=== PATIENT | female | born 1950 | race Caucasian/White ===

== ENCOUNTER → 2017-02-12 | Outpatient (CLI) | payer MEDICARE ==
[~2017-02-12] MED LIST: ASCO10004 PO; CALC1CAP8 PO; CHOL100018 PO; HYDR-3138 PO; THYR240T PO; [UNRECOGNIZED DRUG - OTHER] PO; [UNRECOGNIZED DRUG - OTHER] PO
== END | disposition home or self-care (01) ==
LOC: CFH 12:23
PROVIDERS: ATTEND Family Medicine
DX: Z12.31 Encounter for screening mammogram for malignant neoplasm of breast (principal)
CPT/HCPCS: G0202

== ENCOUNTER → 2018-01-23 | Outpatient (CLI) | payer MEDICARE ==
[~2018-01-23] MED LIST changes: +CALC600T4 PO; +CHOL100012 PO; -CHOL100018 PO; +CHOL2000 PO; -HYDR-3138 PO; +HYDR-3237 PO; +IODI1GRA PO; +KELP1TAB PO; +LEVO137T2 PO; +MULT1TAB60 PO; +SODIUM PO; +SULF1TAB24 PO; +UBID100C24 PO; +ZINC50TA28 PO
[2018-01-23 11:05] LABS: BASOPHILS # (AUTO) 0.03 x10^3/uL (0-0.1); BASOPHILS % (AUTO) 0 % (0-1); EOSINOPHILS # (AUTO) 0.05 x10^3/uL (0-0.4); EOSINOPHILS % (AUTO) 1 % (1-7); LYMPHOCYTES % (AUTO) 21 % (22-44); MD NO; MEAN CORPUSCULAR HGB CONC 33.5 g/dL (32.4-35.8); MEAN CORPUSCULAR VOLUME 92.5 fL (80-100); MEAN PLATELET VOLUME 7.3 fL (7.4-10.4); MONOCYTES # (AUTO) 0.66 x10^3/uL (0.2-0.8); MONOCYTES % (AUTO) 10 % (2-9); NEUTROPHILS # (AUTO) 4.53 x10^3/uL (1.8-6.8); NEUTROPHILS % (AUTO) 68 % (42-75); PLATELET COUNT 226 x10^3/uL (130-400); RED CELL DISTRIBUTION WIDTH 13.4 % (9.6-15.2)
[2018-01-23 11:14] LABS: ALBUMIN 3.8 g/dL (3.4-5.0); ANION GAP 6 mmol/L (5-15); CALCIUM 8.5 mg/dL (8.5-10.1); CHLORIDE 105 mmol/L (98-107)
[2018-01-23 11:18] LABS: ALANINE AMINOTRANSFERASE 28 U/L (12-78); ALKALINE PHOSPHATASE 57 U/L (45-117); BILIRUBIN,TOTAL 0.6 mg/dL (0.2-1.0); CREATININE 1.34 mg/dL (0.55-1.02); TOTAL PROTEIN 6.7 g/dL (6.4-8.2)
== END ==
LOC: STAR 09:29
PROVIDERS: ATTEND Obstetrics & Gynecology
DX: Z01.818 Encounter for other preprocedural examination (principal); R94.31 Abnormal electrocardiogram [ECG] [EKG]
CPT/HCPCS: 36415; 80053; 85025; 93005

== ENCOUNTER 2018-01-30 05:33 | Observation (INO) | payer MEDICARE ==
[~2018-01-30] VITALS: Ht 154.9 cm; Wt 150.0 kg
[2018-01-30 06:28] VITALS: BP 154/89
[2018-01-30] MEDS ORDERED: MIDAZOLAM 1 MG/ML, 2ML ONE (06:35)
[2018-01-30] MEDS ORDERED: FENTANYL PF 250 MCG/5ML ONE (06:35)
[2018-01-30] MEDS ORDERED: PROPOFOL 10 MG/ML, 20ML ONE (06:38)
[2018-01-30] MEDS ORDERED: DEXAMETHASONE 4 MG/ML, 1ML ONE ×2 (06:41)
[2018-01-30] MEDS ORDERED: SODIUM CHLORIDE 0.9% PF 10ML ONE (06:41)
[2018-01-30] MEDS ORDERED: ONDANSETRON 2MG/ML, 2ML ONE (06:41)
[2018-01-30] MEDS ORDERED: CEFAZOLIN 1,000 MG ONE ×3 (06:41→08:08)
[2018-01-30] MEDS ORDERED: BUPIVACAINE/PF 0.25% ONE (07:03)
[2018-01-30] MEDS ORDERED: SILVER NITRATE STICK TP ONE (07:03)
[2018-01-30] MEDS ORDERED: EPINEPHRINE 1 MG/ML, 1ML ONE (07:03)
[2018-01-30] MEDS: LACTATED RINGERS 1,000 ML IV SCH ×2 (07:23→13:40)
[2018-01-30] MEDS ORDERED: HYDROmorphone 1 MG/ML, 1ML IV PRN (07:30)
[2018-01-30] MEDS ORDERED: MEPERIDINE/PF 25MG/0.5ML IVPush PRN (07:30)
[2018-01-30] MEDS ORDERED: ONDANSETRON 2MG/ML, 2ML IVPush PRN (07:30)
[2018-01-30] MEDS ORDERED: LABETALOL 5MG/ML, 20ML IV PRN (07:30)
[2018-01-30] MEDS ORDERED: hydrALAzine 20 MG/ML, 1ML IV PRN (07:30)
[2018-01-30] MEDS ORDERED: PROMETHAZINE 12.5 MG SUPP PR PRN (07:30)
[2018-01-30] MEDS ORDERED: morphine SULFATE 10 MG/ML, 1ML IV PRN ×2 (07:30→11:00)
[2018-01-30] MEDS ORDERED: ACETAMINOPHEN 325 MG TABLET PO PRN (07:30)
[2018-01-30] MEDS ORDERED: PROMETHAZINE 25 MG/ML, 1ML IV PRN (07:30)
[2018-01-30] MEDS ORDERED: HYDROcodone/APAP 7.5-325MG/15ML UDC PO PRN (07:30)
[2018-01-30] MEDS ORDERED: FENTANYL PF 100 MCG/2ML ONE (08:55)
[2018-01-30] MEDS ORDERED: HYDROcodone/APAP 7.5-325MG/15ML UDC ONE (08:55)
[2018-01-30] MEDS: FENTANYL PF 100 MCG/2ML IV PRN ×2 (08:57→09:05)
[2018-01-30] MEDS ORDERED: IBUPROFEN 600 MG TABLET PO PRN (11:00)
[2018-01-30] MEDS ORDERED: ONDANSETRON 2MG/ML, 2ML IV PRN (11:00)
[2018-01-30] MEDS ORDERED: HYDROcodone/APAP 5/325 TABLET PO PRN (11:00)
[2018-01-30 13:28] VITALS: BP 152/75
[2018-01-30 20:24] VITALS: BP 133/71
[2018-01-30] MEDS ORDERED: CHOLECALCIFEROL 1,000 UNIT TABLET PO SCH (21:00)
[2018-01-31 01:29] VITALS: BP 129/63
[2018-01-31 03:59] VITALS: BP 104/68
[2018-01-31] MEDS ORDERED: LEVOTHYROXINE 137 MCG TABLET PO SCH (06:00)
[2018-01-31] MEDS ORDERED: OXYcodone IR 5MG TABLET PO PRN (08:30)
[2018-01-31] MEDS ORDERED: MULTIVITAMIN 1 TABLET PO SCH (09:00)
[2018-01-31] MEDS ORDERED: ZINC SULFATE 220 MG CAPSULE PO SCH (09:00)
[2018-01-31] MEDS ORDERED: CALCIUM CARBONATE 500 MG TABLET PO SCH (09:00)
[2018-01-31] MEDS ORDERED: SULFAMETH./TRIMETHOPRIM DS 800MG/160MG TABLET PO SCH (09:00)
[2018-01-31 09:07] VITALS: BP 124/53
[2018-01-31 12:30] VITALS: BP 129/58
== END 2018-01-31 14:08 | disposition home or self-care (01) ==
LOC: OUT 05:33 → 4NOR 09:45 → OUT 10:13 → DCLOUNGE 01-31 13:25
PROVIDERS: ADMIT Obstetrics & Gynecology; ATTEND Obstetrics & Gynecology
DX: N84.0 Polyp of corpus uteri (principal); N84.2 Polyp of vagina; E03.9 Hypothyroidism, unspecified; I10 Essential (primary) hypertension
CPT/HCPCS: 58563; 88305; G0378; J0171; J0690; J1100; J2250; J2405; J2704; J3010; J3490; J7120

== ENCOUNTER → 2019-02-05 | Outpatient (CLI) | payer MEDICARE ==
[~2019-02-05] MED LIST changes: -ZINC50TA28 PO; +ZINC50TA44 PO
== END | disposition home or self-care (01) ==
LOC: CFH 16:58
PROVIDERS: ATTEND Family Medicine
DX: R05 Cough (principal)
CPT/HCPCS: 71046

== ENCOUNTER → 2019-04-16 | Outpatient (CLI) | payer MEDICARE | END | disposition home or self-care (01) | LOC: CFH 12:47 | PROVIDERS: ATTEND Family Medicine | DX: Z12.31 Encounter for screening mammogram for malignant neoplasm of breast (principal); M48.07 Spinal stenosis, lumbosacral region; M47.817 Spondylosis without myelopathy or radiculopathy, lumbosacral region; M25.78 Osteophyte, vertebrae; M19.021 Primary osteoarthritis, right elbow; M25.821 Other specified joint disorders, right elbow | CPT/HCPCS: 72110; 77067 ==

== ENCOUNTER 2019-12-10 15:34 | Outpatient (CLI) | payer MEDICARE ==
[~2019-12-10 15:34] MED LIST changes: +ASCO500C10 PO; +CEPH-368 PO; +LEVO137T3 PO
== END 2019-12-10 23:59 | disposition home or self-care (01) ==
LOC: CFH 15:34
PROVIDERS: ATTEND Family Medicine
DX: M79.605 Pain in left leg (principal); R22.42 Localized swelling, mass and lump, left lower limb; M79.89 Other specified soft tissue disorders

== ENCOUNTER 2020-04-14 16:18 | Inpatient (IN) | payer MEDICARE ==
[~2020-04-14] VITALS: Ht 157.5 cm; Wt 157.4 kg
[~2020-04-14 16:18] MED LIST changes: +ASPI325T17 PO; +FURO20TA3 PO
--- NOTE | 2020-04-14 17:07 | NUR ---
Recently admitted for COVID-19. Feeling worse today. +cough. VSS. No needs. Placed in isolation.
[2020-04-14 17:09] LABS: BASOPHILS # (AUTO) 0.02 x10^3/uL (0-0.1); BASOPHILS % (AUTO) 0 % (0-1); EOSINOPHILS # (AUTO) 0.02 x10^3/uL (0-0.4); EOSINOPHILS % (AUTO) 0 % (1-7); LYMPHOCYTES # (AUTO) 1.25 x10^3/uL (1-3.4); LYMPHOCYTES % (AUTO) 30 % (22-44); MD NO; MEAN CORPUSCULAR HEMOGLOBIN 29.9 pg (27.0-34.8); MEAN CORPUSCULAR HGB CONC 32.6 g/dL (32.4-35.8); MEAN CORPUSCULAR VOLUME 91.7 fL (80-100); MEAN PLATELET VOLUME 7.7 fL (7.4-10.4); MONOCYTES # (AUTO) 0.72 x10^3/uL (0.2-0.8); MONOCYTES % (AUTO) 17 % (2-9); NEUTROPHILS # (AUTO) 2.16 x10^3/uL (1.8-6.8); NEUTROPHILS % (AUTO) 52 % (42-75); PLATELET COUNT 180 x10^3/uL (130-400); RED BLOOD COUNT 4.46 x10^6/uL (3.82-5.3); RED CELL DISTRIBUTION WIDTH 15.7 % (9.6-15.2)
[2020-04-14 17:22] LABS: ALANINE AMINOTRANSFERASE 35 U/L (12-78); ALBUMIN 3.4 g/dL (3.4-5.0); ALKALINE PHOSPHATASE 53 U/L (45-117); ANION GAP 9 mmol/L (5-15); BILIRUBIN,TOTAL 0.3 mg/dL (0.2-1.0); CALCIUM 8.7 mg/dL (8.5-10.1); CHLORIDE 105 mmol/L (98-107); CREATININE 1.24 mg/dL (0.55-1.02); TOTAL PROTEIN 6.8 g/dL (6.4-8.2)
--- NOTE | 2020-04-14 17:24 | NUR ---
SBA to the [facility]. Voided roughly 700mL ckear yellow urine.
--- NOTE | 2020-04-14 18:41 | NUR ---
Resting in [facility]. VSS. No acute distress.
[2020-04-14] MEDS ORDERED: MAGN400T36 PEG (20:00)
--- NOTE | 2020-04-14 20:02 | NUR ---
Plan is for admit. IV started and med rec complete. SBA to [facility]. No other needs.
--- NOTE | 2020-04-14 20:51 | NUR ---
Resting in [facility]. No needs.
[2020-04-14] MEDS ORDERED: POLYETHYLENE GLYCOL 17 GM PACKET PO PRN (21:00)
[2020-04-14] MEDS: FUROSEMIDE 20 MG TABLET PO SCH ×2 (21:00→22:57)
[2020-04-14] MEDS ORDERED: BISACODYL 10 MG SUPP PR PRN (21:00)
[2020-04-14] MEDS ORDERED: SODIUM CHLORIDE 0.9% 1,000 ML IV SCH (21:00)
[2020-04-14] MEDS ORDERED: GUAIFENESIN/DM 200-20MG, 10ML UDC PO PRN (21:00)
[2020-04-14] MEDS ORDERED: ONDANSETRON ODT 4 MG PO PRN (21:00)
--- NOTE | 2020-04-14 22:04 | NUR ---
GAVE REPORT TO CHACHO VILLAGRAN
[2020-04-14] MEDS: CHOLECALCIFEROL 1,000 UNIT TABLET PO SCH (22:56)
[2020-04-14] MEDS: ASCORBIC ACID 500 MG TABLET PO SCH (22:56)
[2020-04-14] MEDS: HEPARIN 5,000 UNITS/ML, 1ML SQ SCH (22:57)
[2020-04-14] MEDS: SODIUM CHLORIDE FLUSH 10ML SYR IVF SCH (22:58)
[2020-04-15 02:00] VITALS: BP 135/68
[2020-04-15] MEDS: HEPARIN 5,000 UNITS/ML, 1ML SQ SCH ×3 (05:11→20:29)
[2020-04-15] MEDS: ACETAMINOPHEN 325 MG TABLET PO PRN (06:17)
[2020-04-15 06:30] LABS: BASOPHILS # (AUTO) 0.02 x10^3/uL (0-0.1); BASOPHILS % (AUTO) 1 % (0-1); EOSINOPHILS # (AUTO) 0.03 x10^3/uL (0-0.4); EOSINOPHILS % (AUTO) 1 % (1-7); LYMPHOCYTES # (AUTO) 1.28 x10^3/uL (1-3.4); LYMPHOCYTES % (AUTO) 34 % (22-44); MD NO; MEAN CORPUSCULAR VOLUME 90.8 fL (80-100); MEAN PLATELET VOLUME 8.1 fL (7.4-10.4); MONOCYTES # (AUTO) 0.67 x10^3/uL (0.2-0.8); MONOCYTES % (AUTO) 18 % (2-9); NEUTROPHILS # (AUTO) 1.78 x10^3/uL (1.8-6.8); NEUTROPHILS % (AUTO) 47 % (42-75); PLATELET COUNT 177 x10^3/uL (130-400); RED BLOOD COUNT 4.24 x10^6/uL (3.82-5.3); RED CELL DISTRIBUTION WIDTH 16.1 % (9.6-15.2)
[2020-04-15 06:39] LABS: ANION GAP 8 mmol/L (5-15); CALCIUM 8.1 mg/dL (8.5-10.1); CHLORIDE 108 mmol/L (98-107); CREATININE 0.96 mg/dL (0.55-1.02)
[2020-04-15] MEDS ORDERED: LEVOTHYROXINE 100 MCG TABLET PO SCH (07:30)
[2020-04-15 07:34] LABS: C-REACTIVE PROTEIN, QUANT 1.2 mg/dL (0.02-0.49)
[2020-04-15 08:00] VITALS: BP 112/53
[2020-04-15] MEDS: SENNA/DOCUSATE TABLET PO SCH (08:47)
[2020-04-15] MEDS: CALCIUM CARBONATE 500 MG TAB.CHEW PO SCH (08:47)
[2020-04-15] MEDS: FUROSEMIDE 20 MG TABLET PO SCH ×2 (08:48→20:29)
[2020-04-15] MEDS: MAGNESIUM OXIDE 400 MG TABLET PEG SCH (08:48)
[2020-04-15] MEDS: ASCORBIC ACID 500 MG TABLET PO SCH ×3 (08:48→20:29)
[2020-04-15] MEDS: ZINC SULFATE 220 MG CAPSULE PO SCH (08:48)
[2020-04-15] MEDS: MULTIVITAMIN 1 TABLET PO SCH (08:48)
[2020-04-15] MEDS: ASPIRIN 325 MG TABLET PO SCH (08:48)
[2020-04-15] MEDS: SODIUM CHLORIDE FLUSH 10ML SYR IVF SCH ×2 (08:55→20:31)
[2020-04-15] MEDS ORDERED: UBIDECARENONE 600 MG PO SCH (09:00)
[2020-04-15 12:28] LABS: FREE T4 (FREE THYROXINE) 1.37 ng/dL (0.76-1.46)
[2020-04-15 14:00] VITALS: BP 157/79
[2020-04-15 15:38] LABS: ANION GAP 9 mmol/L (5-15); CALCIUM 8.2 mg/dL (8.5-10.1); CHLORIDE 107 mmol/L (98-107)
[2020-04-15 20:00] VITALS: BP 133/58
[2020-04-15] MEDS: CHOLECALCIFEROL 1,000 UNIT TABLET PO SCH (20:29)
[2020-04-16] MEDS ORDERED: OMNIPAQUE 350 MG/ML, 100ML BOTTLE ONE (00:07)
[2020-04-16 02:49] VITALS: BP 137/53
[2020-04-16] MEDS: HEPARIN 5,000 UNITS/ML, 1ML SQ SCH ×3 (05:37→21:13)
[2020-04-16] MEDS ORDERED: LEVOTHYROXINE 100 MCG TABLET PO SCH (07:30)
[2020-04-16] MEDS: MAGNESIUM OXIDE 400 MG TABLET PEG SCH (08:27)
[2020-04-16] MEDS: CALCIUM CARBONATE 500 MG TAB.CHEW PO SCH (08:28)
[2020-04-16] MEDS: SODIUM CHLORIDE FLUSH 10ML SYR IVF SCH ×2 (08:28→21:13)
[2020-04-16] MEDS: ASPIRIN 325 MG TABLET PO SCH (08:28)
[2020-04-16] MEDS: MULTIVITAMIN 1 TABLET PO SCH (08:29)
[2020-04-16] MEDS: FUROSEMIDE 20 MG TABLET PO SCH ×2 (08:29→13:28)
[2020-04-16] MEDS: ASCORBIC ACID 500 MG TABLET PO SCH ×3 (08:29→21:13)
[2020-04-16] MEDS: SENNA/DOCUSATE TABLET PO SCH (08:30)
[2020-04-16] MEDS: ZINC SULFATE 220 MG CAPSULE PO SCH (08:30)
[2020-04-16 08:45] VITALS: BP 134/67
[2020-04-16] MEDS: GUAIFENESIN ER 600 MG TABLET PO SCH ×2 (11:58→21:14)
[2020-04-16] MEDS: ACETAMINOPHEN 325 MG TABLET PO PRN (13:28)
[2020-04-16 17:24] VITALS: BP 160/78
[2020-04-16 18:56] VITALS: BP 138/71
[2020-04-16] MEDS: CHOLECALCIFEROL 1,000 UNIT TABLET PO SCH (21:14)
[2020-04-17 00:52] VITALS: BP 127/69
[2020-04-17] MEDS: HEPARIN 5,000 UNITS/ML, 1ML SQ SCH ×3 (05:10→20:56)
[2020-04-17] MEDS: FUROSEMIDE 20 MG TABLET PO SCH ×2 (05:10→13:13)
[2020-04-17] MEDS: LEVOTHYROXINE 100 MCG TABLET PO SCH (05:11)
[2020-04-17 08:46] VITALS: BP 115/54
[2020-04-17] MEDS: SENNA/DOCUSATE TABLET PO SCH (09:00)
[2020-04-17] MEDS: MULTIVITAMIN 1 TABLET PO SCH (10:08)
[2020-04-17] MEDS: SODIUM CHLORIDE FLUSH 10ML SYR IVF SCH ×2 (10:08→20:55)
[2020-04-17] MEDS: ZINC SULFATE 220 MG CAPSULE PO SCH (10:09)
[2020-04-17] MEDS: CALCIUM CARBONATE 500 MG TAB.CHEW PO SCH (10:09)
[2020-04-17] MEDS: MAGNESIUM OXIDE 400 MG TABLET PEG SCH (10:09)
[2020-04-17] MEDS: ASPIRIN 325 MG TABLET PO SCH (10:09)
[2020-04-17] MEDS: ASCORBIC ACID 500 MG TABLET PO SCH ×3 (10:10→20:56)
[2020-04-17 13:10] VITALS: BP 148/97
[2020-04-17 20:00] VITALS: BP 143/67
[2020-04-17] MEDS: CHOLECALCIFEROL 1,000 UNIT TABLET PO SCH (20:57)
[2020-04-18 02:00] VITALS: BP 131/69
[2020-04-18] MEDS: HEPARIN 5,000 UNITS/ML, 1ML SQ SCH (05:18)
[2020-04-18] MEDS: FUROSEMIDE 20 MG TABLET PO SCH ×2 (05:19→14:15)
[2020-04-18] MEDS: LEVOTHYROXINE 100 MCG TABLET PO SCH (05:19)
[2020-04-18 08:25] VITALS: BP 122/46
[2020-04-18] MEDS ORDERED: LEVOFLOXACIN/PMX 750MG/150ML 150 ML IV SCH (09:30)
[2020-04-18] MEDS: methylPREDNISolone SOD SUCC 40 MG/ML IV SCH ×2 (10:19→20:33)
[2020-04-18] MEDS: ASPIRIN 325 MG TABLET PO SCH (10:19)
[2020-04-18] MEDS: SODIUM CHLORIDE FLUSH 10ML SYR IVF SCH ×2 (10:19→20:34)
[2020-04-18] MEDS: CALCIUM CARBONATE 500 MG TAB.CHEW PO SCH (10:19)
[2020-04-18] MEDS: MULTIVITAMIN 1 TABLET PO SCH (10:19)
[2020-04-18] MEDS: ZINC SULFATE 220 MG CAPSULE PO SCH (10:19)
[2020-04-18] MEDS: MAGNESIUM OXIDE 400 MG TABLET PEG SCH (10:20)
[2020-04-18] MEDS: SENNA/DOCUSATE TABLET PO SCH (10:20)
[2020-04-18] MEDS: ENOXAPARIN 60 MG/0.6 ML SQ SCH (10:20)
[2020-04-18] MEDS: ASCORBIC ACID 500 MG TABLET PO SCH ×3 (10:20→20:33)
[2020-04-18 13:00] VITALS: BP 122/63
[2020-04-18 19:14] VITALS: BP 180/86
[2020-04-18 19:21] VITALS: BP 157/83
[2020-04-18] MEDS: CHOLECALCIFEROL 1,000 UNIT TABLET PO SCH (20:33)
[2020-04-18] MEDS: MELATONIN 3 MG TABLET PO SCH (20:34)
[2020-04-19 02:00] VITALS: BP 146/86
[2020-04-19] MEDS: LEVOTHYROXINE 100 MCG TABLET PO SCH (05:44)
[2020-04-19] MEDS ORDERED: LEVOFLOXACIN 750 MG TABLET PO SCH (06:00)
[2020-04-19 07:34] VITALS: BP 154/82
[2020-04-19] MEDS: methylPREDNISolone SOD SUCC 40 MG/ML IV SCH ×2 (08:36→21:35)
[2020-04-19] MEDS: ASPIRIN 325 MG TABLET PO SCH (08:37)
[2020-04-19] MEDS: MULTIVITAMIN 1 TABLET PO SCH (08:37)
[2020-04-19] MEDS: ASCORBIC ACID 500 MG TABLET PO SCH ×3 (08:37→21:36)
[2020-04-19] MEDS: ZINC SULFATE 220 MG CAPSULE PO SCH (08:37)
[2020-04-19] MEDS: CALCIUM CARBONATE 500 MG TAB.CHEW PO SCH (08:37)
[2020-04-19] MEDS: SODIUM CHLORIDE FLUSH 10ML SYR IVF SCH ×2 (08:37→21:36)
[2020-04-19] MEDS: MAGNESIUM OXIDE 400 MG TABLET PEG SCH (08:38)
[2020-04-19] MEDS: ENOXAPARIN 60 MG/0.6 ML SQ SCH (08:38)
[2020-04-19] MEDS: SENNA/DOCUSATE TABLET PO SCH (08:39)
[2020-04-19 08:43] LABS: ALBUMIN 3.7 g/dL (3.4-5.0); ANION GAP 6 mmol/L (5-15); CALCIUM 8.7 mg/dL (8.5-10.1); CHLORIDE 107 mmol/L (98-107); MEAN CORPUSCULAR HEMOGLOBIN 30.1 pg (27.0-34.8); MEAN CORPUSCULAR HGB CONC 33.2 g/dL (32.4-35.8); MEAN CORPUSCULAR VOLUME 90.7 fL (80-100); MEAN PLATELET VOLUME 7.3 fL (7.4-10.4); PLATELET COUNT 324 x10^3/uL (130-400); RED BLOOD COUNT 5.02 x10^6/uL (3.82-5.3); RED CELL DISTRIBUTION WIDTH 15.6 % (9.6-15.2)
[2020-04-19 08:48] LABS: ALANINE AMINOTRANSFERASE 55 U/L (12-78); ALKALINE PHOSPHATASE 63 U/L (45-117); BILIRUBIN,TOTAL 0.5 mg/dL (0.2-1.0); C-REACTIVE PROTEIN, QUANT 0.41 mg/dL (0.02-0.49); CREATININE 1.08 mg/dL (0.55-1.02); TOTAL PROTEIN 7.8 g/dL (6.4-8.2)
[2020-04-19 09:17] LABS: BASOPHILS # (AUTO) 0.03 x10^3/uL (0-0.1); BASOPHILS % (AUTO) 0 % (0-1); EOSINOPHILS % (AUTO) 0 % (1-7); LYMPHOCYTES # (AUTO) 1.21 x10^3/uL (1-3.4); LYMPHOCYTES % (AUTO) 9 % (22-44); MD SCAN; MONOCYTES # (AUTO) 0.52 x10^3/uL (0.2-0.8); MONOCYTES % (AUTO) 4 % (2-9); NEUTROPHILS # (AUTO) 12.09 x10^3/uL (1.8-6.8); NEUTROPHILS % (AUTO) 87 % (42-75)
[2020-04-19 12:28] VITALS: BP 146/82
[2020-04-19] MEDS: FUROSEMIDE 20 MG TABLET PO SCH (13:41)
[2020-04-19] MEDS: PSYLLIUM PACKET PO SCH (13:41)
[2020-04-19 21:19] VITALS: BP 129/53
[2020-04-19] MEDS: MELATONIN 3 MG TABLET PO SCH (21:36)
[2020-04-19] MEDS: CHOLECALCIFEROL 1,000 UNIT TABLET PO SCH (21:36)
[2020-04-20 03:32] VITALS: BP 125/65
[2020-04-20] MEDS: LEVOTHYROXINE 100 MCG TABLET PO SCH (06:14)
[2020-04-20 06:47] VITALS: BP 136/74
[2020-04-20] MEDS ORDERED: ASCORBIC ACID 250 MG TAB ONE (08:33)
[2020-04-20] MEDS: MULTIVITAMIN 1 TABLET PO SCH (08:55)
[2020-04-20] MEDS: methylPREDNISolone SOD SUCC 40 MG/ML IV SCH ×2 (08:55→21:45)
[2020-04-20] MEDS: CALCIUM CARBONATE 500 MG TAB.CHEW PO SCH (08:56)
[2020-04-20] MEDS: SODIUM CHLORIDE FLUSH 10ML SYR IVF SCH ×2 (08:56→21:45)
[2020-04-20] MEDS: ENOXAPARIN 60 MG/0.6 ML SQ SCH (08:57)
[2020-04-20] MEDS: ASPIRIN 325 MG TABLET PO SCH (08:57)
[2020-04-20] MEDS: PSYLLIUM PACKET PO SCH (08:58)
[2020-04-20] MEDS: ASCORBIC ACID 500 MG TABLET PO SCH ×3 (08:58→21:46)
[2020-04-20] MEDS: MAGNESIUM OXIDE 400 MG TABLET PEG SCH (08:58)
[2020-04-20] MEDS: ZINC SULFATE 220 MG CAPSULE PO SCH (08:59)
[2020-04-20] MEDS: SENNA/DOCUSATE TABLET PO SCH (08:59)
[2020-04-20 12:15] VITALS: BP 138/69
[2020-04-20] MEDS: FUROSEMIDE 20 MG TABLET PO SCH (15:45)
[2020-04-20 19:59] VITALS: BP 143/61
[2020-04-20] MEDS: MELATONIN 3 MG TABLET PO SCH (21:46)
[2020-04-20] MEDS: CHOLECALCIFEROL 1,000 UNIT TABLET PO SCH (21:46)
[2020-04-21 02:54] VITALS: BP 155/82
[2020-04-21] MEDS: FUROSEMIDE 20 MG TABLET PO SCH ×2 (05:31→13:59)
[2020-04-21] MEDS: LEVOTHYROXINE 100 MCG TABLET PO SCH (05:31)
[2020-04-21] MEDS ORDERED: LEVOFLOXACIN 750 MG TABLET PO SCH (06:00)
[2020-04-21 08:25] VITALS: BP 152/80
[2020-04-21] MEDS: PSYLLIUM PACKET PO SCH (09:45)
[2020-04-21] MEDS: SENNA/DOCUSATE TABLET PO SCH (09:45)
[2020-04-21] MEDS: SODIUM CHLORIDE FLUSH 10ML SYR IVF SCH ×2 (09:56→20:26)
[2020-04-21] MEDS: methylPREDNISolone SOD SUCC 40 MG/ML IV SCH (09:56)
[2020-04-21] MEDS: ZINC SULFATE 220 MG CAPSULE PO SCH (09:57)
[2020-04-21] MEDS: MULTIVITAMIN 1 TABLET PO SCH (09:57)
[2020-04-21] MEDS: MAGNESIUM OXIDE 400 MG TABLET PEG SCH (09:57)
[2020-04-21] MEDS: ASPIRIN 325 MG TABLET PO SCH (09:57)
[2020-04-21] MEDS: CALCIUM CARBONATE 500 MG TAB.CHEW PO SCH (09:58)
[2020-04-21] MEDS: ASCORBIC ACID 500 MG TABLET PO SCH ×3 (09:58→20:25)
[2020-04-21 12:20] VITALS: BP 113/53
[2020-04-21] MEDS: ENOXAPARIN 60 MG/0.6 ML SQ SCH (13:59)
[2020-04-21 19:28] VITALS: BP 131/65
[2020-04-21] MEDS: MELATONIN 3 MG TABLET PO SCH (20:25)
[2020-04-21] MEDS: CHOLECALCIFEROL 1,000 UNIT TABLET PO SCH (20:26)
[2020-04-22 00:38] VITALS: BP 159/95
[2020-04-22] MEDS: FUROSEMIDE 20 MG TABLET PO SCH (05:44)
[2020-04-22] MEDS: LEVOTHYROXINE 100 MCG TABLET PO SCH (05:44)
[2020-04-22 06:08] LABS: BASOPHILS # (AUTO) 0.04 x10^3/uL (0-0.1); BASOPHILS % (AUTO) 0 % (0-1); EOSINOPHILS # (AUTO) 0.08 x10^3/uL (0-0.4); EOSINOPHILS % (AUTO) 1 % (1-7); LYMPHOCYTES % (AUTO) 14 % (22-44); MD NO; MEAN CORPUSCULAR HEMOGLOBIN 30.1 pg (27.0-34.8); MEAN CORPUSCULAR HGB CONC 33.2 g/dL (32.4-35.8); MEAN CORPUSCULAR VOLUME 90.6 fL (80-100); MEAN PLATELET VOLUME 7.8 fL (7.4-10.4); MONOCYTES # (AUTO) 1.38 x10^3/uL (0.2-0.8); MONOCYTES % (AUTO) 9 % (2-9); NEUTROPHILS # (AUTO) 11.86 x10^3/uL (1.8-6.8); NEUTROPHILS % (AUTO) 76 % (42-75); PLATELET COUNT 299 x10^3/uL (130-400); RED BLOOD COUNT 4.66 x10^6/uL (3.82-5.3)
[2020-04-22 06:20] LABS: ANION GAP 4 mmol/L (5-15); C-REACTIVE PROTEIN, QUANT 0.08 mg/dL (0.02-0.49); CALCIUM 8.5 mg/dL (8.5-10.1); CHLORIDE 109 mmol/L (98-107)
[2020-04-22 06:22] LABS: CREATININE 1.17 mg/dL (0.55-1.02)
[2020-04-22 07:52] VITALS: BP 131/58
[2020-04-22] MEDS: ENOXAPARIN 60 MG/0.6 ML SQ SCH (08:51)
[2020-04-22] MEDS: ASCORBIC ACID 500 MG TABLET PO SCH ×2 (08:52→14:51)
[2020-04-22] MEDS: MAGNESIUM OXIDE 400 MG TABLET PEG SCH (08:52)
[2020-04-22] MEDS: ZINC SULFATE 220 MG CAPSULE PO SCH (08:52)
[2020-04-22] MEDS: MULTIVITAMIN 1 TABLET PO SCH (08:52)
[2020-04-22] MEDS: ASPIRIN 325 MG TABLET PO SCH (08:52)
[2020-04-22] MEDS: CALCIUM CARBONATE 500 MG TAB.CHEW PO SCH (08:53)
[2020-04-22] MEDS: SENNA/DOCUSATE TABLET PO SCH (08:53)
[2020-04-22] MEDS: PSYLLIUM PACKET PO SCH (08:53)
[2020-04-22] MEDS: SODIUM CHLORIDE FLUSH 10ML SYR IVF SCH (09:00)
[2020-04-22] MEDS ORDERED: methylPREDNISolone SOD SUCC 40 MG/ML IV SCH (09:00)
[2020-04-22] MEDS ORDERED: LEVO100T PO (09:34)
[2020-04-22] MEDS ORDERED: ALBU90AE2 INH (09:34)
[2020-04-22] MEDS ORDERED: PRED20TA PO (09:34)
[2020-04-22] MEDS ORDERED: LEVO750T26 PO (09:34)
[2020-04-22 14:02] VITALS: BP 101/49
== END 2020-04-22 15:58 | disposition home or self-care (01) | DRG 177 ==
LOC: ED 17:17 → EDIP 20:41 → 4NE 22:25
PROVIDERS: ADMIT Internal Medicine; ATTEND Hospitalist
DX: U07.1 COVID-19 (principal); J12.89 Other viral pneumonia; Z68.44 Body mass index [BMI] 60.0-69.9, adult; E66.01 Morbid (severe) obesity due to excess calories; F17.200 Nicotine dependence, unspecified, uncomplicated; R06.00 Dyspnea, unspecified; G47.33 Obstructive sleep apnea (adult) (pediatric); I27.20 Pulmonary hypertension, unspecified; D17.9 Benign lipomatous neoplasm, unspecified; I89.0 Lymphedema, not elsewhere classified; T38.0X5A Adverse effect of glucocorticoids and synthetic analogues, initial encounter; E03.9 Hypothyroidism, unspecified; Z90.89 Acquired absence of other organs; Z90.49 Acquired absence of other specified parts of digestive tract; Z88.0 Allergy status to penicillin; Z88.1 Allergy status to other antibiotic agents; Z88.8 Allergy status to other drugs, medicaments and biological substances
CPT/HCPCS: 36415; 71045; 71260; 80048; 80053; 83615; 84145; 84439; 84443; 85025; 85379; 86140; 87205; 93005; 93308; 93321; 93325; 94762; G0378; J1644; J1650; Q9967; J2920; J7030; J7512

== ENCOUNTER 2020-05-05 20:58 | Emergency (ER) | payer MEDICARE ==
[~2020-05-05] VITALS: Ht 165.1 cm; Wt 152.0 kg
[~2020-05-05 20:58] MED LIST changes: +ALBU90AE2 INH; +LEVO100T PO; +LEVO750T26 PO; +MAGN400T36 PEG; +PRED20TA PO
[2020-05-05 21:05] VITALS: BP 146/65
[2020-05-05 22:04] LABS: BASOPHILS # (AUTO) 0.04 x10^3/uL (0-0.1); BASOPHILS % (AUTO) 0 % (0-1); EOSINOPHILS # (AUTO) 0.13 x10^3/uL (0-0.4); EOSINOPHILS % (AUTO) 2 % (1-7); LYMPHOCYTES # (AUTO) 1.96 x10^3/uL (1-3.4); LYMPHOCYTES % (AUTO) 23 % (22-44); MD NO; MEAN CORPUSCULAR HEMOGLOBIN 30.8 pg (27.0-34.8); MEAN CORPUSCULAR HGB CONC 33.6 g/dL (32.4-35.8); MEAN CORPUSCULAR VOLUME 91.7 fL (80-100); MEAN PLATELET VOLUME 7.4 fL (7.4-10.4); MONOCYTES # (AUTO) 0.95 x10^3/uL (0.2-0.8); MONOCYTES % (AUTO) 11 % (2-9); NEUTROPHILS # (AUTO) 5.39 x10^3/uL (1.8-6.8); NEUTROPHILS % (AUTO) 64 % (42-75); PLATELET COUNT 176 x10^3/uL (130-400); RED BLOOD COUNT 3.92 x10^6/uL (3.82-5.3); RED CELL DISTRIBUTION WIDTH 16.6 % (9.6-15.2)
[2020-05-05 22:08] LABS: ALBUMIN 3.1 g/dL (3.4-5.0); ANION GAP 5 mmol/L (5-15); CHLORIDE 106 mmol/L (98-107); CREATININE 1.39 mg/dL (0.55-1.02)
== END 2020-05-06 00:33 | disposition home or self-care (01) ==
LOC: ED 21:42
DX: R60.0 Localized edema (principal); R05 Cough; R06.02 Shortness of breath; E66.9 Obesity, unspecified; Z68.43 Body mass index [BMI] 50.0-59.9, adult; Z90.49 Acquired absence of other specified parts of digestive tract
CPT/HCPCS: 36415; 71045; 80048; 82040; 83880; 85025; 93970; 99285

== ENCOUNTER → 2021-01-24 | Outpatient (CLI) | payer MEDICARE ==
[~2021-01-24] MED LIST changes: +ASCO100018 PO; -ASCO10004 PO; -CALC600T4 PO; +CALC600T60 PO; +MULT-449 PO; -MULT1TAB60 PO
== END | disposition home or self-care (01) ==
LOC: CFH 13:41
PROVIDERS: ATTEND Family Medicine
DX: Z12.31 Encounter for screening mammogram for malignant neoplasm of breast (principal); R10.2 Pelvic and perineal pain; N85.4 Malposition of uterus; N83.202 Unspecified ovarian cyst, left side
CPT/HCPCS: 76830; 77063; 77067

== ENCOUNTER → 2021-05-18 | Outpatient (CLI) | payer MEDICARE ==
[~2021-05-18] MED LIST changes: +SULF-23 PO; -SULF1TAB24 PO
== END | disposition home or self-care (01) ==
LOC: RAD 12:36
PROVIDERS: ATTEND Family Medicine
DX: S09.90XA Unspecified injury of head, initial encounter (principal); R41.3 Other amnesia; G93.89 Other specified disorders of brain; X58.XXXA Exposure to other specified factors, initial encounter; Y93.89 Activity, other specified; Y92.89 Other specified places as the place of occurrence of the external cause; Y99.8 Other external cause status
CPT/HCPCS: 70551